=== PATIENT | female | born 1975 | race Two or more races ===

== ENCOUNTER 2017-04-18 09:36 | Day surgery (SDC) | payer OTHER ==
[2017-04-18] MEDS ORDERED: Lactated Ringer's 500 ML IV ONE (10:31)
[2017-04-18] MEDS ORDERED: Propofol 10 mg/ml Inj (20 ML) ONE ×2 (12:43→13:03)
[2017-04-18 13:17] VITALS: TEMP 97
[2017-04-18 13:25] VITALS: BP 100/65; PULSE 62; RESP 14; O2SAT 98
== END 2017-04-18 13:33 | disposition home or self-care (01) ==
LOC: H.ENDO 09:36
PROVIDERS: ATTEND Internal Medicine Gastroenterology
DX: K31.9 Disease of stomach and duodenum, unspecified (principal); K29.50 Unspecified chronic gastritis without bleeding; K44.9 Diaphragmatic hernia without obstruction or gangrene; B96.20 Unspecified Escherichia coli [E. coli] as the cause of diseases classified elsewhere; K64.8 Other hemorrhoids; K59.00 Constipation, unspecified